=== PATIENT | female | born 1950 | race Caucasian/White ===

== ENCOUNTER 2019-07-19 16:39 | Inpatient (IN) | payer MEDICARE, MEDICAID ==
[2019-07-19] MEDS ORDERED: Norepinephrine 4 MG/4 ML VIAL ONE (16:51)
[2019-07-19] MEDS ORDERED: Cefepime 1 GM, Admixture Fee 1 EACH in Sodium Chloride 0.9% 100 ML IVPB SCH (17:30)
[2019-07-19 17:44] LABS: #Lymphocytes 0.7 thou/uL (1.20-3.40); #Monocytes 0.2 thou/uL (0.11-0.59); #Neutrophils 12.2 thou/uL (1.40-6.50); %Basophils 0.1 % (0.0-1.0); %Lymphocytes 5.1 % (21.0-51.0); %Monocytes 1.4 % (0.0-10.0); %Neutrophils 93.4 % (42.0-75.0); Hemoglobin 7.3 g/dL (12.0-16.0); Mean Corpuscular Hemoglobin 27.1 pg (27.0-31.0); Mean Corpuscular Volume 84.7 fL (78.0-98.0); Mean Platelet Volume 6.1 fL (7.4-10.4); Platelet Count 489 thou/uL (130-400); RBC Distribution Width 16.5 % (11.5-14.5)
--- NOTE | 2019-07-19 17:50 | RAD ---
Exam: CHEST ONE VIEW: HISTORY:Sepsis. Altered mental status. Comparison: None FINDINGS: Cardiac silhouette:Cardiomegaly. Limited evaluation due to leftward rotation. Aorta: Atherosclerosis. Pulmonary vessels: Normal Costophrenic angles: All left-sided effusion. LUNGS: Hyperinflation with patchy interstitial and alveolar opacities. Pneumothorax: None Osseous abnormalities: Questionable fracture involving the anterolateral sixth rib. Lines and tubes: Right-sided central venous catheter, terminating in the right atrium. IMPRESSION: 1. Atherosclerosis. 2. Cardiomegaly. 3. Patchy interstitial and alveolar opacities. Transcribed Date/Time: 07/19/2019 6:08 PM
[2019-07-19 17:52] LABS: INR-International Normal Ratio 1.5; Prothrombin Time 17.8 SEC (12.0-14.7)
[2019-07-19 18:04] LABS: Acetaminophen Less than 6.0 mcg/mL (10.0-30.0); Alcohol Less than 10 mg/dL (Less than 10); Salicylate Less than 8.0 mg/dL (15.0-30.0)
[2019-07-19 18:06] LABS: ALT (SGPT) 10 U/L (8-55); AST (SGOT) 23 U/L (5-34); Albumin 2.4 g/dL (3.4-4.8); Alkaline Phosphatase 91 U/L (40-110); Anion Gap 15 mmol/L (10-20); BUN (Urea Nitrogen) 18 mg/dL (9.8-20.1); Bilirubin, Total 0.3 mg/dL (0.2-1.2); Calc. Creatinine Clearance 0 mL/min (70-130); Calcium 7.3 mg/dL (7.8-10.44); Carbon Dioxide 15 mmol/L (23-31); Chloride 109 mmol/L (98-107); Estimated GFR-MDRD 61; Globulin 2.4 g/dL (2.4-3.5); Glucose 147 mg/dL (80-115); Lipase Less than 4 U/L (8-78); Magnesium 1.7 mg/dL (1.6-2.6); Potassium 3.8 mmol/L (3.5-5.1); Protein, Total 4.8 g/dL (6.0-8.3); Sodium 135 mmol/L (136-145)
[2019-07-19 18:25] LABS: Bilirubin Negative (Negative); Blood, Urine Trace (Negative); Clarity Clear (Clear); Glucose, Urine (Dipstick) Normal (Negative); Leukocyte 250 Leu/uL (Negative); Nitrite 1+ (Negative); Protein, Urine (Dipstick) 30 mg/dL (Neg-Trace); RBC/HPF 0-3 HPF (0-3); Squamous Epithelial 0-3 HPF (0-3); Urobilinogen Normal mg/dL (Less than 2)
[2019-07-19 18:32] LABS: CKMB 7.7 ng/mL (0-6.6)
[2019-07-19 18:35] LABS: Bacteria/HPF 2+ HPF (None Seen)
--- NOTE | 2019-07-19 19:34 | CT ---
CT SHARAD WITHOUT CONTRAST: History: Altered mental status. FINDINGS: There are changes of cortical atrophy and chronic small vessel ischemic disease. The ventricular size is appropriate and the basilar cisterns patent. No evidence of acute infarct, hemorrhage, midline sh ift, or abnormal extraaxial fluid collections are seen. The bony calvarium is intact. The visualized paranasal sinuses and mastoid air cells are well aerated. There is small old infarct in the left cerebellar hemisphere. IMPRESSION: No CT evidence of acute intracranial process. POS: [facility]
[2019-07-19 20:08] LABS: Medtox Reader # READER 1
[2019-07-19 20:09] LABS: Amphetamine Not Detected (NotDetected); Barbiturates Screen Not Detected (NotDetected); Benzodiazepine Screen Not Detected (NotDetected); Cocaine Metabolite Screen Not Detected (NotDetected); Medtox Control Line Valid? VALID (VALID); Methadone Not Detected (NotDetected); Methamphetamine Not Detected (NotDetected); Opiate Screen Not Detected (NotDetected); Oxycodone Screen Not Detected (NotDetected); Phencyclidine (PCP) Not Detected (NotDetected); THC/Cannabinoid Screen Not Detected (NotDetected); Tricyclic Screen Detected (NotDetected)
[2019-07-19] MEDS ORDERED: Norepinephrine 8 MG in Dextrose 5% in Water 242 ML IVPB PRN (20:23)
[2019-07-19] MEDS ORDERED: Dextrose 5 %-0.45 % NaCl 1,000 ML IV SCH (20:30)
[2019-07-19] MEDS ORDERED: Sodium Chloride 0.9% 1,000 ML IV SCH (20:57)
[2019-07-19] MEDS ORDERED: Cefepime 2 GM in Sodium Chloride 0.9% 100 ML IVPB SCH (21:00)
[2019-07-19 21:20] LABS: Lactic Acid 4.3 mmol/L (0.5-2.2)
--- NOTE | 2019-07-19 21:28 | CT ---
CT PULMONARY ANGIOGRAM WITH IV CONTRAST AND 3D POSTPROCESSING: Date: 07/19/19 HISTORY: Deep venous thrombosis left lower extremity in October 2012. COPD. Sepsis, dyspnea. FINDINGS: There is good contrast opacification of the pulmonary arterial vasculature to suggest pulmonary embol ism. The thoracic aorta is not opacified. There are vascular calcifications without evidence of aneur ysmal dilatation of the thoracic aorta. The thoracic aorta is ectatic with ascending thoracic aorta m easuring 4 cm in diameter. The esophagus is distended and fluid-filled. A large hiatal hernia is pre sent. There are patchy areas of consolidation in the left mid and both lower lung zones. No pericardial or significant pleural effusions are seen. Thera re degenerative changes in the spine. IMPRESSION: No CT evidence of pulmonary embolism. POS: [facility]
--- NOTE | 2019-07-19 22:20 | HP ---
PRIMARY CARE PHYSICIAN: Dr. Quyen Dee in Dr. Roman Talbert's office. CHIEF COMPLAINT: Extremely weak. HISTORY OF PRESENT ILLNESS: History is taken from the patient's sister, Ms. Dilcia Sawyer, who is at the bedside as the patient is extremely weak and a bit confused and unable to give me any history. But Ms. Stone is a pleasant 69-year-old female, who has a history of COPD, emphysema, as well as asthma. She was in her usual state of health until the last week. She has been congested and she has had a poor appetite according to the sister, and this morning, they were getting her up to get dressed, when they tried to get her up, and she basically was extremely weak and says she just can't do this, she took a couple of steps and then basically just kind of slumped down. They also noted that she has been breathing heavy the last day and then today, she was coughing and it seemed very congested. For this reason, they took her to the emergency room in [place], where they evaluated her and found that she has a pneumonia. She was hypotensive and tachycardic and for this reason, she was sent to our facility for further treatment. Otherwise, no other history is obtainable. She was also found to be severely anemic with guaiac positive stools. REVIEW OF SYSTEMS: Unobtainable due to the patient being a bit confused. PAST MEDICAL HISTORY: Significant for COPD, emphysema, asthma, degenerative joint disease, hypotension. She has had a recent esophageal stricture, which was dilated and history of TIA. PAST SURGICAL HISTORY: Negative. ALLERGIES: NO KNOWN DRUG ALLERGIES. SOCIAL HISTORY: She is a smoker and smoked 2-3 packs a day for the last 50 years. No alcohol use. She is single, has no children. Her sister Dilcia Sawyer is the surrogate decision maker and her phone number is [phone]. She would like her sister to be a full code. FAMILY HISTORY: Significant for hypotension in the father and hardening arteries in the father. MEDICATIONS: Include; 1. Aspirin 81 mg daily. 2. Lipitor 20 mg p.o. daily. 3. Plavix 75 mg p.o. daily. 4. Cyclobenzaprine as needed. 5. Metoprolol 25 mg 1/2 tablet daily. 6. Tramadol 50 mg t.i.d. PHYSICAL EXAMINATION: GENERAL: The patient is awake, but she is a bit confused. She is not completing sentences. She is chronically ill in appearance and frail. VITAL SIGNS: Her blood pressure initially was in the 80s to 90s systolic. Now she has a systolic blood pressure of around 130, on Levophed. Heart rate is 130s to 140s, respiratory rate is 18 to 20. HEENT: Her pupils are equal, round, and reactive. Extraocular muscles are intact. Her sclerae anicteric. Throat, no erythema, no exudates. NECK: No adenopathy. No bruits. LUNGS: She has bilateral wheezing throughout both lung [place]. She has also got rales and rhonchi throughout both lung [place]. CARDIOVASCULAR: Heart rate is rapid, but regular. There is no murmurs, no clicks, no rubs. ABDOMEN: Soft. She appears to have some voluntary guarding, primarily in the epigastric region. There is no rebound. Bowel sounds are present. EXTREMITIES: There is no edema and no joint effusions. NEUROLOGIC: Her muscle strength appears to be grossly intact. She is moving all extremities. SKIN AND INTEGUMENT: No significant skin changes. No rash. LABORATORY DATA: Urinalysis shows trace blood as well as ketones, 4 to 6 WBCs, 250 leukocyte esterase, and 2+ bacteria. CBC; the white blood cell count is 13, hemoglobin 7.3, hematocrit is 22.9, and platelet count is 489. Chemistry; sodium is 135, potassium 3.8, chloride is 109, CO2 of 15, BUN of 18, creatinine 0.91, glucose is 147. Troponin is 0.18. Lactic acid of 2.1. Chest x-ray by my reading shows some mild hyperinflation. The patient is rotated, but there does appear to be patchy alveolar and interstitial opacities. This is by my reading and also she had a CT scan of the brain showing no acute intracranial process and stool guaiac was positive. ASSESSMENT: This is a pleasant 69-year-old female, who presents with metabolic encephalopathy, which appears to be pneumonia as well as sepsis. She also has likely acute blood loss anemia due to GI bleed. She will be admitted to the ICU due to her critical condition. 1. With regard to the pneumonia with sepsis, she will be placed on IV broad-spectrum antibiotics. This appears to be a community-acquired pneumonia as there is no known recent hospitalization, but due to the severe sepsis, we will start with broad-spectrum antibiotics. She has been fluid resuscitated in the ER. She continued to be hypotensive initially and therefore, we will continue pressors to maintain a sufficient mean arterial pressure. Pulmonary and Critical Care Medicine specialists will be consulted. 2. Acute anemia, possibly due to blood loss. She is being transfused currently in the ER. We will put her on IV Protonix drip and consult GI in the a.m. 3. History of chronic obstructive pulmonary disease. She will be placed on DuoNebs p.r.n. We will leave IV steroids at the discretion of Pulmonology. 4. Elevated troponin. I suspect this is demand ischemia due to the pneumonia with sepsis. We will continue to trend these and consider echocardiogram. Otherwise, further recommendations will depend on how the patient fares through the next 24 hours. Job ID: [id number]
[2019-07-19] MEDS: Norepinephrine 8 MG in Dextrose 5% in Water 242 ML IVPB SCH (22:32)
[2019-07-19] MEDS: Pantoprazole 80 MG in Sodium Chloride 0.9% 100 ML IVP SCH (22:44)
[2019-07-20] MEDS ORDERED: Furosemide 20 MG/2 ML VIAL SLOW IVP SCH (00:45)
[2019-07-20] MEDS ORDERED: Albumin 25% 25 GM/100 ML BOT IVPB SCH (00:45)
[2019-07-20] MEDS: Piperacillin/Tazobactam 3.375 GM in Sodium Chloride 0.9% 100 ML IVPB SCH ×5 (00:49→23:16)
[2019-07-20 01:07] LABS: Troponin I 1.926 ng/mL (< 0.028)
[2019-07-20] MEDS ORDERED: Vancomycin HCl 1 GM in Premix Bag 1 BAG IVPB SCH ×2 (02:00→17:00)
[2019-07-20 03:01] LABS: Band 12 % (5-11); Hemoglobin 8.3 g/dL (12.0-16.0); Hypochromia SLIGHT = 6-15 cells (100X) (0-5/hpf); Lymphocytes 6 % (21-51); MDiff Complete? YES; Mean Corpuscular HGB CONC 30.9 g/dL (32.0-36.0); Mean Corpuscular Hemoglobin 27.7 pg (27.0-31.0); Mean Corpuscular Volume 89.7 fL (78.0-98.0); Mean Platelet Volume 6.1 fL (7.4-10.4); Metamyelocyte 2 % (0-0); Monocytes 4 % (0-10); Neutrophil 76 % (42-75); Platelet Count 553 thou/uL (130-400); Platelet Morphology Comment Appears Increased; RBC Distribution Width 15.3 % (11.5-14.5); Red Blood Cell (RBC) Count 2.98 mill/uL (4.20-5.40); White Blood Cell (WBC) Count 23.8 thou/uL (4.8-10.8)
[2019-07-20] MEDS ORDERED: Furosemide 40 MG/4 ML VIAL ONE (03:03)
[2019-07-20 03:06] LABS: Anion Gap 25 mmol/L (10-20); BUN (Urea Nitrogen) 22 mg/dL (9.8-20.1); Calc. Creatinine Clearance 37 mL/min (70-130); Calcium 8.3 mg/dL (7.8-10.44); Carbon Dioxide 9 mmol/L (23-31); Chloride 107 mmol/L (98-107); Estimated GFR-MDRD 37; Glucose 110 mg/dL (80-115); Potassium 5.3 mmol/L (3.5-5.1); Sodium 136 mmol/L (136-145)
[2019-07-20] MEDS ORDERED: Hydrocortisone Sod Succ/PF 100 mg/2 ml Vial ONE (03:20)
[2019-07-20] MEDS ORDERED: Midazolam HCl 2 mg/2 ml Vial ONE (03:26)
[2019-07-20] MEDS ORDERED: Bacteriostatic Water 30 ML VIAL FS PRN (03:28)
[2019-07-20] MEDS ORDERED: methylPREDNISolone Sod Succ/PF 125 MG/2 ML VIAL IVP SCH (03:30)
[2019-07-20] MEDS ORDERED: Propofol 1,000 MG/100 ML VIAL IV PRN (03:37)
[2019-07-20] MEDS ORDERED: Fentanyl BOLUS 250 ML IVPB PRN (03:37)
[2019-07-20] MEDS ORDERED: Propofol BOLUS 1,000 MG/100 ML VIAL IV PRN (03:37)
[2019-07-20] MEDS ORDERED: DISCONTINUE PREVIOUS NARCOTIC PAIN MEDICATIONS AND BENZODIAZEPINES FS SCH (03:37)
[2019-07-20] MEDS ORDERED: fentaNYL Citrate/PF 2,000 MCG in Sodium Chloride 0.9% 60 ML IV SCH (03:37)
[2019-07-20] MEDS ORDERED: Morphine 2 MG/ML SYRINGE SLOW IVP PRN (03:37)
--- NOTE | 2019-07-20 04:02 | PDOC.EVN ---
Event Note - Event Note Event Note: Called per nursing regarding persistent resp distress, low urine output in context of severe sepsis on Levophed/Cefepime/Vancomycin with suspected PNA. Received 1u PRBC's and IVF's with coarse breath sounds bilaterally on O2 via NC. VS: BP 104/65, P 115's, T 99, O2 sat 65%, R 40's Gen: somnolent, severe resp distress on O2 via HEENT: nares patent, OP dry mucosa, PERRLA, EOMI, no neck mass/supple, no JVD Chest: coarse sounds bilat, diminished bilat CV: S1, S2, tachycardic ABD: rounded, soft, ND, NT EXT: no C/C/E NEURO: somnolent, nods to questions briefly Labs: Reviewed PCXR - LLL opacity, prominent vasc markings, chronic changes noted VBG - pH 6.97/CO2 35/ O2 15/ HCO3 8 Tele - Sinus tachycardia in 115's PCXR - post intubation, ETT in place but close to maura, pulled ETT back 1cm A/P: Acute hypoxic resp failure - trial of BiPAP ineffective, prep for intubation with FMR service present to intubate, Lasix 20mg IV x 1, Solumedrol 60mg IV x 1 , Duonebs PNA - Continue Cefepime/Vancomycin Severe Sepsis with shock - Continue Levophed, abx as above, IVF's, 1 amp bicarbonate Hypotension - continue Levophed, increase IVF's, monitor I/O's, Hugo redd Total critical care time: 50min
--- NOTE | 2019-07-20 04:07 | PDOC.EVN ---
Event Note - Event Note Event Note: INDICATION: Hypoxia, Respiratory distress currently on BiPAP PROCEDURE FIELD RADIO TECHNICIAN: Sophia Goodman DO; Andrea Drake DO ATTENDING PHYSICIAN: Marcin Chakraborty DO CONSENT: Verbal consent was obtained from patient prior to the procedure. Indications, risks, and benefits were explained at length. PROCEDURE SUMMARY: A time out was performed. My hands were washed immediately prior to the procedure, gloves worn throughout the procedure. The patient was placed on a shelter monitor including continuous pulse oximetry. Rapid Sequence Intubation was conducted. The patient received 2 mg of Versed & 30 mg Etomidate for induction. No medication indicated for paralysis. Cricoid pressure was maintained from time induction agent was given to time of cuff balloon inflation. Using a glide scope laryngoscope and a size 7 endotracheal tube with stylet, the patient was intubated on the 1st attempt. The stylet was removed and cuff balloon was inflated. Appropriate endotracheal tube position was confirmed by direct visualization of vocal cord passage, fogging of the tube, CO2 colometric indicator and symmetric breath sounds. The tube was secured at 21 cm at the lips. Post intubation chest x-ray is pending at this time. I supervised Dr. Goodman/Vidal during the entire procedure. No complications noted and tube placement confirmed with above criteria and PCXR showed appropriate positioning though tube pulled back 1cm after review of CXR. Agree with above documentation.
[2019-07-20 04:13] LABS: Actual Bicarbonate (HCO3a) 5.1 mEq/L (22-28); Base Excess (BEa) -22.6 mEq/L (-2.0 to +3.0); Calcium, Ionized 1.11 mmol/L (1.12-1.30); Carboxyhemoglobin (COHb) 1.5 gm% (0.0-3.0); Hemoglobin (Hb) 8.1 g/dL (12.0-16.0); Potassium - ABG Lab 5.04 mmol/L (3.70-5.30)
[2019-07-20 04:23] LABS: CO2 Tension 16.9 mmHg (35.0-45.0)
[2019-07-20 04:24] LABS: ALV-art Gradient 325.875 (0-20); Puncture Site RBRACHIAL
[2019-07-20] MEDS ORDERED: Sodium Bicarbonate 150 MEQ in Dextrose 5 % And 0.9 % NaCl 1,000 ML IV SCH (04:30)
[2019-07-20] MEDS ORDERED: Sodium Bicarb 50 MEQ/50 ML VIAL ONE ×3 (04:30→08:05)
[2019-07-20 04:55] LABS: Hemoglobin 7.7 g/dL (12.0-16.0); Mean Corpuscular HGB CONC 31.5 g/dL (32.0-36.0); Mean Corpuscular Hemoglobin 28.2 pg (27.0-31.0); Mean Corpuscular Volume 89.6 fL (78.0-98.0); Mean Platelet Volume 6.3 fL (7.4-10.4); Platelet Count 464 thou/uL (130-400); RBC Distribution Width 15.5 % (11.5-14.5); Red Blood Cell (RBC) Count 2.73 mill/uL (4.20-5.40); White Blood Cell (WBC) Count 21.3 thou/uL (4.8-10.8)
[2019-07-20 05:10] LABS: Band 3 % (5-11); Hypochromia SLIGHT = 6-15 cells (100X) (0-5/hpf); Lymphocytes 9 % (21-51); MDiff Complete? YES; Monocytes 3 % (0-10); Neutrophil 85 % (42-75); Platelet Morphology Comment Appears Increased
[2019-07-20 05:13] LABS: BUN (Urea Nitrogen) 22 mg/dL (9.8-20.1); Calc. Creatinine Clearance 36 mL/min (70-130); Calcium 7.9 mg/dL (7.8-10.44); Chloride 109 mmol/L (98-107); Estimated GFR-MDRD 36; Glucose 86 mg/dL (80-115); Potassium 5.3 mmol/L (3.5-5.1); Sodium 137 mmol/L (136-145)
[2019-07-20 05:16] LABS: Carbon Dioxide Less than 8 mmol/L (23-31)
[2019-07-20 05:21] LABS: Troponin I 2.515 ng/mL (< 0.028)
[2019-07-20] MEDS: Albumin 25% 25 GM/100 ML BOT IVPB SCH ×3 (05:30→18:33)
[2019-07-20] MEDS: Lorazepam 2 MG/ML VIAL SLOW IVP PRN ×2 (07:40→21:24)
[2019-07-20 07:50] LABS: Actual Bicarbonate (HCO3a) 5.2 mEq/L (22-28); Base Excess (BEa) -24.4 mEq/L (-2.0 to +3.0); Calcium, Ionized 1.06 mmol/L (1.12-1.30); Carboxyhemoglobin (COHb) 1.3 gm% (0.0-3.0); O2 Tension (PaO2) 60.3 mmHg (> 80.0); Potassium - ABG Lab 5.16 mmol/L (3.70-5.30)
[2019-07-20 07:59] LABS: CO2 Tension 22.3 mmHg (35.0-45.0); pH, Arterial 6.99 (7.35-7.45)
[2019-07-20 08:00] LABS: Puncture Site RBA
[2019-07-20] MEDS: Sodium Chloride 0.9% 1,000 ML IV SCH ×5 (08:00→23:14)
[2019-07-20 08:01] LABS: ALV-art Gradient 268.325 (0-20)
[2019-07-20] MEDS: Sodium Bicarb 50 MEQ/50 ML VIAL ONE ×2 (08:10→08:11)
[2019-07-20 08:14] LABS: Lactic Acid 15.6 mmol/L (0.5-2.2)
--- NOTE | 2019-07-20 08:39 | RAD ---
CHEST 1 VIEW: COMPARISON: 07/20/2019. HISTORY: Status post intubation. FINDINGS: Interval placement of endotracheal tube, just proximal to the maura. There is a right-sided vascula r catheter with the distal tip projecting over the right atrium, unchanged. Stable cardiac silhouett e, hiatal hernia, and lung parenchymal opacification. No pneumothorax. IMPRESSION: Interval placement of endotracheal tube, just proximal to maura. POS: [facility]
[2019-07-20 08:43] LABS: Actual Bicarbonate (HCO3a) 12.2 mEq/L (22-28); Base Excess (BEa) -12.3 mEq/L (-2.0 to +3.0); Calcium, Ionized 0.91 mmol/L (1.12-1.30); Carboxyhemoglobin (COHb) 1.5 gm% (0.0-3.0); O2 Tension (PaO2) 307.3 mmHg (> 80.0); Potassium - ABG Lab 4.44 mmol/L (3.70-5.30); pH, Arterial 7.34 (7.35-7.45)
[2019-07-20 08:45] LABS: Puncture Site RBA
--- NOTE | 2019-07-20 08:45 | RAD ---
ONE VIEW CHEST: HISTORY: Endotracheal tube placement. COMPARISON: 07/20/2019 at 3:22 p.m. FINDINGS: There has been interval retraction of the endotracheal tube. Distal tip is now approximately 2 cm ab ove the maura. Otherwise, no significant change. IMPRESSION: Interval repositioning of the endotracheal tube. POS: [facility]
[2019-07-20] MEDS ORDERED: FLU VACC TS2019-20(65YR UP)/PF 180 MCG/0.5 ML SYRINGE IM ONE (09:00)
--- NOTE | 2019-07-20 09:26 | RAD ---
SEMIUPRIGHT FRONTAL CHEST RADIOGRAPH: Date: 07/20/19 COMPARISON: 07/19/19. HISTORY: Respiratory failure. FINDINGS: Stable right-sided vascular catheter. No pneumothorax is evident. Coarse increased linear interstitia l density with pulmonary hyperinflation noted. Asymmetric increased density in the left perihilar reg ion noted, nonspecific. No large volume pleural effusion or lobar consolidation. Atherosclerotic calc ification of aortic arch noted. There is a prominent hiatal hernia present. IMPRESSION: Interstitial prominence bilaterally. Focal opacity in the left perihilar region may represent infecti ous pneumonitis/aspiration. Continued follow-up to full resolution advised. POS: [facility]
[2019-07-20] MEDS ORDERED: Sodium Bicarbonate 2.5 MEQ/5 ML VIAL IV SCH (09:30)
[2019-07-20] MEDS: Sodium Bicarbonate 150 MEQ in Dextrose 5 % And 0.9 % NaCl 1,000 ML IV SCH ×3 (09:30→18:51)
[2019-07-20] MEDS: Norepinephrine 8 MG in Dextrose 5% in Water 242 ML IVPB SCH ×2 (10:00→23:00)
--- NOTE | 2019-07-20 10:07 | PDOC.PALCO ---
Palliative Care Consult - Consult Details Requesting Physician: Dr Chakraborty Reason for Consult: advance directives assistance, assistance with communication prognosis/disease, family support Family Members Present: None - Pertinent HPI 69 year old female who has a history COPD, emphysema, and asthma. One week prior to presentation to the emergency room patient had been at her baseline, however over preceding week patient has had an increase in congestion, decrease in appetite, progressive weakness. Morning of 07/19 patient family states she attempted to get out of bed but was only able to ambulate short distance and "slumped down" was no longer able to get up without assistance secondary to weakness, shortness of breath. Evaluation at local emergency room which identified pneumonia, hypotension, and tachycardia thus transfer to [facility] for higher lever of care. During the night patient was no longer able to tolerate Bipap and intubation was required to protect/maintain airway. - Pertinent PMH COPD, Emphysema, asthma, degenerative joint disease, hypotension, recent esophageal stricture requiring dilatitation, history of CVA. - Social History Smoking Status: Current every day smoker Smoking: greater than 1 pack/day Alcohol Use: none Drug Use History: none Living Situation: independent - Medications MAR Reviewed: Yes - Allergies Allergies/Adverse Reactions: Allergies Allergy/AdvReac Type Severity Reaction Status Date / Time No Known Allergies Allergy Verified 07/19/19 21:42 - Subjective mechanical ventilation, sedation, gross to bedside with clear yellow urine, NG with coffee ground liquid. - Objective Vital Signs: Vital Signs - Most Recent Temp Pulse Resp BP Pulse Ox 97.6 F 127 H 36 H 115/83 100 07/20/19 05:00 07/20/19 08:05 07/20/19 06:41 07/20/19 08:05 07/19/19 21:00 Palliative Performance Scale: 20 - Physical Exam Deviation from normal: Ill appearing, sedated, mechanical ventilaion HEENT: moist MMs, sclera anicteric Deviation from normal: NG with coffee ground gastric contents Respiratory: clear to auscultation bilateral (Clear upper, mechanical ventialtion) Deviation from normal: Regular but tachycardic Gastrointestinal: non-tender, positive bowel sounds Deviation from normal: NG with coffee ground gastric contents Musculoskeletal: pulses present Deviation from normal: cyanosis to left hand, mottled left hand and left ankle/ foot Deviation from normal: Sedated, no purposeful movement. Deviation from normal: Sedated Deviation from normal: Poor turgor, mottled left hand/lower ext. - Problem List (1) Palliative care encounter Code(s): Z51.5 - ENCOUNTER FOR PALLIATIVE CARE Current Visit: Yes Status: Acute (2) Metabolic encephalopathy Code(s): G93.41 - METABOLIC ENCEPHALOPATHY Current Visit: Yes Status: Acute (3) Respiratory failure requiring intubation Code(s): J96.90 - RESPIRATORY FAILURE, UNSP, UNSP W HYPOXIA OR HYPERCAPNIA Current Visit: Yes Status: Acute (4) Pneumonia Code(s): J18.9 - PNEUMONIA, UNSPECIFIED ORGANISM Current Visit: Yes Status: Acute (5) COPD (chronic obstructive pulmonary disease) Current Visit: Yes Status: Acute - Plan/Recommendations Plan: Initial contact with patient. Audrey PADRON caring for patient to update family and identify when they can come for a family meeting to discuss resuscitation status, disease processes and goals of care. *Palliative Care will attempt to facilitate a family meeting with Dilcia Sawyer [phone] to discuss goals of care/resuscitation and provide family support. Vitaly Echeverria echocardiography technologist to also follow. Please refer to Palliative Care RN noted in note section of chart. [45] minutes spent on this encounter with >50% of the time in counseling and coordination of care. Thank you for this very appropriate consult.
--- NOTE | 2019-07-20 14:07 | PDOC.HOSPP ---
- Subjective Encounter Date: 07/20/19 Encounter Time: 14:06 Subjective: Ms. Stone was seen today in follow-up of Pneumonia with sepsis. She is intubated. - Objective Vital Signs & Weight: Vital Signs (12 hours) Temp Pulse Resp BP Pulse Ox 07/20/19 12:47 135 H 117/73 07/20/19 10:53 135 H 117/82 07/20/19 10:00 34 H 07/20/19 08:05 127 H 115/83 07/20/19 08:00 98.1 F 36 H 77 L 07/20/19 07:36 126 H 105/77 07/20/19 06:41 36 H 07/20/19 05:00 97.6 F 07/20/19 04:19 132 H 07/20/19 04:00 32 H Weight Weight 134 lb 7.712 oz Most Recent Monitor Data Heart Rate from ECG 133 NIBP 119/74 NIBP BP-Mean 89 Respiration from ECG 29 SpO2 46 I&O: 07/19/19 07/20/19 07/21/19 06:59 06:59 06:59 Intake Total 2453.1 Output Total 221 125 Balance 2232.1 -125 Result Diagrams: 07/20/19 04:09 07/20/19 04:09 Additional Labs: Accuchecks 07/20/19 07/19/19 09:02 23:18 POC Glucose 112 H 173 H Hospitalist ROS - Medication Medications: Active Medications Generic Name Dose Route Start Last Admin Trade Name Freq PRN Reason Stop Dose Admin Albumin Human 25 gm 07/20/19 06:00 07/20/19 11:23 Albumin 25% IVPB 07/21/19 06:01 25 gm Q6HR PIO Administration Pantoprazole Sodium 80 mg/ 100 mls @ 10 mls/hr 07/19/19 20:57 07/19/19 22:44 Sodium Chloride IVP 100 mls INF PIO Administration Piperacillin Sod/Tazobactam 100 mls @ 200 mls/hr 07/19/19 23:59 07/20/19 11: 24 Sod 3.375 gm/ Sodium Chloride IVPB 100 mls Q6HR PIO Administration Norepinephrine Bitartrate 8 mg 250 mls @ 0 mls/hr 07/19/19 21:05 07/20/19 10: 00 / Dextrose/Water IVPB 250 mls INF PIO Administration Protocol Titrate Sodium Chloride 1,000 mls @ 250 mls/hr 07/20/19 06:00 07/20/19 11:25 Normal Saline 0.9% IV 1,000 mls .Q4H PIO Administration Sodium Bicarbonate 150 meq/ 1,150 mls @ 200 mls/hr 07/20/19 09:30 07/20/19 12 :42 Dextrose/Sodium Chloride IV 1,150 mls .Q5H45M PIO Administration Lorazepam 2 mg 07/20/19 03:37 07/20/19 07:40 Ativan SLOW IVP 08/19/19 03:37 2 mg Q1H PRN Administration Breakthrough agitation Sodium Chloride 10 ml 07/19/19 21:00 07/20/19 11:20 Flush - Normal Saline IVF 10 ml Q12HR PIO Administration - Exam Eye: PERRL Heart: RRR (tachycardic), no gallops, no rubs, normal peripheral pulses Respiratory: CTAB (+ coarse breath sounds, and rales at the right base), no rales, no ronchi, normal chest expansion Gastrointestinal: soft, non-tender, non-distended, normal bowel sounds, no palpable masses, no hepatomegaly, no splenomegaly Extremities: no cyanosis, no edema Hosp A/P (1) Pneumonia Code(s): J18.9 - PNEUMONIA, UNSPECIFIED ORGANISM Status: Acute (2) Severe sepsis Code(s): A41.9 - SEPSIS, UNSPECIFIED ORGANISM; R65.20 - SEVERE SEPSIS WITHOUT SEPTIC SHOCK Status: Acute (3) Acute respiratory failure with hypoxia Code(s): J96.01 - ACUTE RESPIRATORY FAILURE WITH HYPOXIA Status: Acute (4) Acute systolic heart failure Code(s): I50.21 - ACUTE SYSTOLIC (CONGESTIVE) HEART FAILURE Status: Acute (5) GI bleed Code(s): K92.2 - GASTROINTESTINAL HEMORRHAGE, UNSPECIFIED Status: Acute (6) Acute blood loss anemia Code(s): D62 - ACUTE POSTHEMORRHAGIC ANEMIA Status: Acute (7) COPD (chronic obstructive pulmonary disease) Status: Acute - Plan * Pneumonia with severe sepsis- will continue IV antibiotics * Blood pressure support with Levophed * Continue Bicarb drip for severe metabolic acidosis * Acute systolic heart failure- Unclear if this acute or chronic- will consult Cardiology * Acute anemia- positive occult blood in the stool- will continue the Protonix drip, and consult GI for evaluation * I met with the family today, along with the Palliative Care Team- and the decision has been made to continue aggressive care, but they are considering changing her code status to DNAR
[2019-07-20 15:15] VITALS: BP 92/66
[2019-07-20 15:45] VITALS: BMI 21.7
[2019-07-20] MEDS: Pantoprazole 80 MG in Sodium Chloride 0.9% 100 ML IVP SCH (18:35)
--- NOTE | 2019-07-20 19:57 | RAD ---
Exam: Chest one view: HISTORY: Respiratory failure COMPARISON: 07/20/2019 FINDINGS: NG tube, endotracheal tube, and right subclavian catheters remain in place. There appears to be some progressive bilateral interstitial and alveolar opacity changes bilaterally particularly in the perihilar regions worse on the left side showing some progression from the prior study. Evidence for moderate size hiatal hernia. IMPRESSION: Progressive vascular congestion and increased linear and interstitial markings particularly in the pe rihilar region worse on the left side showing worsening from most recent prior study.
--- NOTE | 2019-07-20 21:47 | CON ---
DATE OF CONSULTATION: HISTORY OF PRESENT ILLNESS: Jacquie Stone is a 69-year-old white female with history of COPD. Over the last week, she has been having increasing congestion, poor appetite, and weakness. Yesterday, she could only take a couple of steps and then slumped down to the floor, was short of breath, went to the hospital in [place] and transferred here. Once here, she continued to have respiratory distress and ultimately was intubated. She has been anemic and found to have guaiac-positive stools. PAST MEDICAL HISTORY: COPD, asthma, hypotension, history of TIA. She also has esophageal stricture that was dilated. MEDICATIONS: 1. Albuterol nebs t.i.d. 2. Aspirin 81 daily. 3. Plavix 75 daily. 4. Atorvastatin 20 daily. 5. Flexeril 5 mg b.i.d. 6. Metoprolol 12.5 daily. 7. Tramadol 50 t.i.d. 8. Vitamin D2. ALLERGIES: NONE. OPERATIONS: None. SOCIAL HISTORY: She smokes 2-3 packs a day for least 50 years. She does not drink. She is single with no children. REVIEW OF SYSTEMS: Unobtainable with the patient being intubated and unresponsive. PHYSICAL EXAMINATION: VITAL SIGNS: Blood pressure 117/73, pulse of 135 on Levophed. CHEST: Reveals wheezing on the left. CARDIOVASCULAR: S1, S2 normal without any S3, S4 or murmurs. ABDOMEN: Normal bowel sounds without tenderness. EXTREMITIES: Reveal no edema. NEUROLOGICAL: The patient is unresponsive, on no sedation. LABORATORY DATA: EKG is not on the chart. Echo revealed severe left ventricular dysfunction with ejection fraction of 15% to 20%, moderately enlarged right ventricle and decreased right ventricular systolic pressure, moderate mitral regurgitation, mild tricuspid regurgitation. Hemoglobin 7.7, hematocrit 24.5, white count 31270, platelets 464,000. INR 1.5. ABG worse with pH of 6.99, pCO2 22.3 , pO2 60.3. Sodium 137, potassium 5.3, chloride 109, carbon dioxide less than 8, BUN 22, and creatinine 1.44. Lactic acid is up to 15.6, troponin I 2.515. Chest CTA reveals no evidence of pulmonary embolism. There is some infiltrate in the left lung field suspicious for pneumonia. IMPRESSION: 1. Respiratory failure, probable community-acquired pneumonia. 2. Chronic obstructive pulmonary disease. 3. Smoker. 4. Severe cardiomyopathy with ejection fraction of 15% to 20% of uncertain etiology. 5. Elevated troponin, probable non-ST elevation myocardial infarction type 2. 6. Anemia with guaiac-positive stools. 7. Hypertension. 8. Hypercholesterolemia. 9. Probable encephalopathy. PLAN: The patient continues to remain hypotensive on pressors and is probably septic from her pneumonia. She also has gastrointestinal bleeding. At the present time, she is not a candidate for any further cardiac evaluation until her hypotension, respiratory status improve and her GI bleed etiology is clarified. I will follow the patient with you, although her long-term prognosis is poor with the patient unresponsive on no sedation. Job ID: [id number] [facility] WESTCHESTERMichelle
--- NOTE | 2019-07-20 23:29 | CON ---
DATE OF CONSULTATION: 07/20/2019 REQUESTING PHYSICIAN: Dr. Botello. REASON FOR CONSULTATION: GI bleeding. HISTORY OF PRESENT ILLNESS: Jacquie Stone is a 69-year-old woman with an unfortunate history of COPD and recent CVA. She evidently had an esophageal stricture dilated in the past, perhaps with Dr. Gomez. Otherwise, her GI history is unknown to me. She was admitted to the hospital last night after having presented with one week of progressive weakness, poor appetite, and dyspnea on exertion. She had had a cough for several days. Upon arrival, she was hypotensive and tachycardic and imaging suggested a pneumonia. Labs are consistent with sepsis with significant leukocytosis and lactic acid elevation. She is treated aggressively with resuscitation, Levophed and broad-spectrum antibiotics. She was also found to be anemic with hemoglobin of 7.3, she received 1 unit RBC transfusion overnight. She had to be endotracheally intubated due to progressive cardiorespiratory failure, not tolerating the BiPAP. She is now on a ventilator, Levophed is still on. Echocardiogram earlier today demonstrated severe heart failure with global ventricular dysfunction and EF only 15% to 20%. During this time, an orogastric tube was placed and this has returned a small amount of coffee-ground material. She has had no overt melena, though FOBT was positive. Hemoglobin is currently stable at 7.7, but she remains tachycardic and hypotensive. Palliative Care has seen the patient and discussions are ongoing as to whether she is going to be changed to DNR status. REVIEW OF SYSTEMS: Unable to obtain due to the patient's mental status. She is sedated and intubated. PAST MEDICAL HISTORY: COPD, degenerative joint disease, hypertension, esophageal stricture with dilation, CVA in June 2019, tobacco abuse, heart failure. ALLERGIES: NO KNOWN DRUG ALLERGIES. OUTPATIENT MEDICATIONS: 1. Aspirin 81 mg daily. 2. Lipitor. 3. Plavix 75 mg daily. 4. Flexeril. 5. Metoprolol. 6. Tramadol. INPATIENT MEDICATIONS: 1. IV albumin. 2. Lorazepam. 3. Norepinephrine drip. 4. Pantoprazole drip. 5. IV Zosyn. 6. Sodium bicarbonate drip. 7. IV vancomycin. FAMILY HISTORY: Father had peripheral vascular disease. SOCIAL HISTORY: The patient is an active smoker. No alcohol abuse. PHYSICAL EXAMINATION: VITAL SIGNS: Pulse 135, blood pressure 92/66, temperature 98.1, oxygen saturation 77% on ventilator. GENERAL: Critically ill 69-year-old woman, sedated and intubated. SKIN: She is pale. No jaundice. No rashes were palpable. Skin is mottled in the distal extremities x4. EYES: No scleral icterus. ENT: The patient is endotracheally intubated. Orogastric tube has a small amount of coffee-ground material, just 50 mL in the suction canister. Thyroid, nontender to palpation. HEART: Regular tachycardia. LUNGS: Bilateral vent sounds with crackles. ABDOMEN: Nondistended. Bowel sounds are hypoactive, but present. Soft and nontender to palpation. EXTREMITIES: Mottling of the extremities x4. NEUROLOGICAL: The patient is sedated. LABORATORY STUDIES: WBC 21.3. Hemoglobin initially 7.3, after 1 unit RBCs, it is 7.7. Platelets 464. Sodium 137, potassium 5.3, BUN 22, creatinine 1.44. INR 1.5. Lactic acid rising up to 15.6. Troponin rising initially 0.18, then 1.2, then 1.9, now 2.5. CK-MB 7.7. BNP 205. Total bilirubin 0.3, alkaline phosphatase 91, AST 23, ALT 10. Note that lactic acid was only 2.1 on initial presentation. FOBT positive. IMAGING STUDIES: Echocardiogram demonstrated severely depressed ventricular function with LVEF only 15% to 20%. CT angiogram demonstrates no evidence of PE. She has patchy consolidation in the left lung and large hiatal hernia and distended fluid-filled esophagus. ASSESSMENT AND PLAN: 1. Anemia, unknown chronicity. 2. Heme-positive stool, very limited significance in this setting. 3. Acute congestive heart failure with EF only 15% to 20%. 4. Elevated troponin. 5. Pneumonia/sepsis, severe. This is severe presentation with cardiorespiratory failure, severe cardiac dysfunction, background chronic obstructive pulmonary disease, and sepsis. She does indeed have significant anemia, and I suppose an occult GI bleeding source is a possibility; however, she is certainly too ill to consider any endoscopic investigation. Frankly, with the rising lactic acid levels and persistent hemodynamic instability, I would be worried for development of multiorgan failure and possibly bowel ischemia. Continue with aggressive supportive care as you are doing. I understand that Palliative Care has been consulted and discussions about goals of care are ongoing. I would certainly not consider any endoscopic investigation unless the patient were to make a dramatic turnaround in hemodynamics status. Continue to trend H and H and transfuse as needed. GI can follow along for now. Please call anytime with questions or concerns. Job ID: [id number]
[2019-07-20] MEDS ORDERED: Amiodarone 150 MG, Admixture Fee 1 EACH in Dextrose 5% in Water 100 ML IVPB SCH (23:59)
[2019-07-20] MEDS ORDERED: Amiodarone 450 MG, Admixture Fee 1 EACH in Dextrose 5% in Water 250 ML IVPB SCH (23:59)
[2019-07-21] MEDS: Albumin 25% 25 GM/100 ML BOT IVPB SCH (00:12)
[2019-07-21] MEDS: Sodium Bicarbonate 150 MEQ in Dextrose 5 % And 0.9 % NaCl 1,000 ML IV SCH ×2 (00:34→06:43)
--- NOTE | 2019-07-21 00:51 | CON ---
Critical care time 40 minutes DATE OF CONSULTATION: HISTORY OF PRESENT ILLNESS: Jacquie Stone is a woman, who was admitted last night with respiratory failure. I was consulted this morning by the nurse taking care of her when the blood gas showed pH of 6.99. Bicarb was pushed, bicarb drip was increased and repeat blood gas showed a pH of 7.34. PAST MEDICAL HISTORY: 1. Reportedly remarkable for stroke in the past. 2. History of COPD. 3. History of ongoing tobacco. 4. History of arthritis. 5. History of esophageal stricture. 6. Acute 2 pack-a-day smoker, not a daily drinker. REVIEW OF SYSTEMS: Not obtainable. ALLERGIES: NONE REPORTED. FAMILY HISTORY: Negative for lung disease in early age. PHYSICAL EXAMINATION: VITAL SIGNS: Blood pressure 117/73, heart rate is in the 130 range, respiratory rate per mechanical ventilation. HEENT: Pupils are reactive. She appears older than her age. She has temporal muscle wasting. NECK: Supple without lymphadenopathy. LUNGS: Remarkable for coarse equal breath sounds. HEART: Regular rhythm. ABDOMEN: Soft. No masses. EXTREMITIES: Without clubbing, cyanosis, or edema. LABORATORY DATA: PH 7.34, CO2 23, PO2 307. Sodium 137, potassium 5.3, chloride 109, bicarb less than 8, BUN 22, creatinine 1.44. White count 21.3, hemoglobin 7.7, platelets 464. IMPRESSION: Clinical sepsis associated with pneumonia, easily seen on chest radiograph and chest CT. PLAN: Continue with pressor support, bicarb drip, volume resuscitation, empiric broad antimicrobial therapy. I suspect she will survive the clinical sepsis, but it is unclear whether or not she will survive to a point where she can be extubated successfully. She does have a new finding of systolic cardiomyopathy this admission based on the echocardiogram done this morning. Job ID: [id number] [facility]
[2019-07-21 02:26] VITALS: TEMP 98.5
[2019-07-21] MEDS: Norepinephrine 8 MG in Dextrose 5% in Water 242 ML IVPB SCH ×2 (02:29→05:52)
[2019-07-21] MEDS: Sodium Chloride 0.9% 1,000 ML IV SCH (03:24)
[2019-07-21] MEDS ORDERED: Sodium Chloride 0.9% 1,000 ML IV SCH (03:30)
[2019-07-21] MEDS ORDERED: Vasopressin 40 UNIT, Admixture Fee 1 EACH in Sodium Chloride 0.9% 100 ML IV SCH (03:30)
[2019-07-21 04:34] LABS: Hemoglobin 5.9 g/dL (12.0-16.0)
[2019-07-21 04:43] LABS: Chloride 114 mmol/L (98-107); Potassium 3.7 mmol/L (3.5-5.1); Sodium 154 mmol/L (136-145)
[2019-07-21 04:44] LABS: Glucose 171 mg/dL (80-115)
[2019-07-21 04:47] LABS: Calc. Creatinine Clearance 27 mL/min (70-130); Estimated GFR-MDRD 26
[2019-07-21 04:48] LABS: BUN (Urea Nitrogen) 21 mg/dL (9.8-20.1)
[2019-07-21 04:49] LABS: Calcium 5.4 mg/dL (7.8-10.44); Carbon Dioxide Less than 8 mmol/L (23-31)
[2019-07-21 04:52] LABS: Band 14 % (5-11); Lymphocytes 19 % (21-51); MDiff Complete? YES; Mean Corpuscular HGB CONC 31.2 g/dL (32.0-36.0); Mean Corpuscular Hemoglobin 27.8 pg (27.0-31.0); Mean Corpuscular Volume 89.1 fL (78.0-98.0); Mean Platelet Volume 6.9 fL (7.4-10.4); Metamyelocyte 1 % (0-0); Monocytes 2 % (0-10); Myelocyte 3 % (0-0); Neutrophil 61 % (42-75); Nucleated RBC 3 % (0); Platelet Count 84 thou/uL (130-400); Platelet Morphology Comment Appears Decreased; RBC Distribution Width 15.8 % (11.5-14.5); White Blood Cell (WBC) Count 17.7 thou/uL (4.8-10.8)
[2019-07-21 05:28] LABS: Lactic Acid 27.1 mmol/L (0.5-2.2)
[2019-07-21] MEDS: Pantoprazole 80 MG in Sodium Chloride 0.9% 100 ML IVP SCH (05:53)
--- NOTE | 2019-07-21 06:10 | PDOC.BPN ---
- Brief Progress Note pt developed atrial fib but given amidoarone and improvement in HR , overnight trending down low BP , added 2nd pressor . family d/w , agreeable to withdrawal of care after a sister comes to visit this am . will await family decision for palliative extubation this am
--- NOTE | 2019-07-22 05:00 | DIS ---
DATE OF ADMISSION: 07/19/2019 DATE OF DISCHARGE: 07/21/2019 DIAGNOSES: 1. Pneumonia. 2. Septic shock. 3. Acute systolic heart failure with an ejection fraction of 10% to 15%. 4. Gastrointestinal bleed with acute blood loss anemia. 5. Chronic obstructive pulmonary disease. 6. Emphysema. 7. History of transient ischemic attack. 8. History of esophageal stricture. CODE STATUS: DNAR. ALLERGIES: NO KNOWN DRUG ALLERGIES. PROCEDURES DONE DURING ADMISSION: The patient had a CT angiogram of the chest showing no evidence of pulmonary embolism. The patient had a CT scan of the brain in which there was no CT evidence of any acute intracranial process. The patient had an echocardiogram in which the ejection fraction was estimated at 15% to 20%. There was moderate right ventricular enlargement and moderate mitral regurgitation. HOSPITAL COURSE: Ms. Stone was a 69-year-old female, who was admitted to the hospital with extreme weakness and shortness of breath. She was found to have likely a hospital-acquired pneumonia. She also had severe sepsis with hypotension requiring pressor therapy. She was admitted to the ICU and after being in the ICU for a few hours, she decompensated. She developed a very severe metabolic acidosis, was started on a bicarb drip. Her troponins became elevated up to a peak of 2.5. Despite broad-spectrum antibiotics, being placed on a multiple pressors, Levophed and norepinephrine drip as well as being mechanically ventilated, the patient did not improve much. She was transfused during her hospital stay as well. The family decided that she would not want all of these aggressive treatment. The patient's daughter had told me on admission that the patient had not wanted to be placed on a ventilator, but the sister made a decision at the time to place her on the ventilator on admission. Given these reasons, the decision was made to withdraw care and the patient was taken off life support and passed shortly thereafter. Job ID: [id number]
== END 2019-07-21 07:45 | disposition expired | DRG 871 ==
LOC: ERS 16:39 → CCU 20:08
PROVIDERS: ADMIT Internal Medicine; ATTEND Internal Medicine
PROC: 0BH17EZ Insertion of Endotracheal Airway into Trachea, Via Natural or Artificial Opening (ICD-10-PCS; principal; 2019-07-19)
PROC: 5A1935Z Respiratory Ventilation, Less than 24 Consecutive Hours (ICD-10-PCS; 2019-07-19)
PROC: 30233N1 Transfusion of Nonautologous Red Blood Cells into Peripheral Vein, Percutaneous Approach (ICD-10-PCS; 2019-07-19)
PROC: 02H633Z Insertion of Infusion Device into Right Atrium, Percutaneous Approach (ICD-10-PCS; 2019-07-19)
DX: A41.9 Sepsis, unspecified organism (principal); R65.21 Severe sepsis with septic shock; J18.9 Pneumonia, unspecified organism; I50.21 Acute systolic (congestive) heart failure; G93.41 Metabolic encephalopathy; J96.01 Acute respiratory failure with hypoxia; D62 Acute posthemorrhagic anemia; K92.2 Gastrointestinal hemorrhage, unspecified; N39.0 Urinary tract infection, site not specified; J43.9 Emphysema, unspecified; Z66 Do not resuscitate; Z51.5 Encounter for palliative care; I11.0 Hypertensive heart disease with heart failure; R40.2142 Coma scale, eyes open, spontaneous, at arrival to emergency department; R40.2352 Coma scale, best motor response, localizes pain, at arrival to emergency department; R40.2242 Coma scale, best verbal response, confused conversation, at arrival to emergency department; F17.200 Nicotine dependence, unspecified, uncomplicated; M19.90 Unspecified osteoarthritis, unspecified site; E78.00 Pure hypercholesterolemia, unspecified; Z86.718 Personal history of other venous thrombosis and embolism; Z86.73 Personal history of transient ischemic attack (TIA), and cerebral infarction without residual deficits
CPT/HCPCS: 36415; 36416; 36430; 36556; 51702; 70450; 71045; 71275; 80048; 80053; 80306; 80307; 81003; 81015; 82274; 82553; 82805; 83605; 83690; 83735; 83880; 84443; 84484; 85025; 85610; 85730; 86850; 86900; 86901; 87040; 87086; 93005; 93306; 94002; 94003; 96361; 96365; 96366; 96375; 99292; C9113; J0282; J0692; J1720; J1940; J2060; J2250; J2543; J2930; J3370; J3490; J7042; J7070; P9016; P9047